=== PATIENT | female | born 1955 | race Caucasian/White ===

== ENCOUNTER → 2022-01-02 | Outpatient (CLI) | payer MEDICARE ==
--- NOTE | 2022-01-03 19:56 | MM ---
Reason for Exam: Screening (asymptomatic). Last mammogram was performed 12 year(s) and 7 month(s) ago. Patient History: Menarche at age 11. Patient has no children. Postmenopausal. Mother had breast cancer. Risk Values: Paty 5 year model risk: 3.6%. NCI Lifetime model risk: 12.6%. Prior Study Comparison: 03/22/2008 Screening Mammogram, [facility]. 06/20/2009 Bilateral Diagnostic Mammogram, [facility]. Tissue Density: The breast tissue is heterogeneously dense. This may lower the sensitivity of mammography. Findings: Analyzed By CAD. Bilateral areas of asymmetric density did not clearly persist on 3-D images. As no priors are available for comparison, progression or a 6 month follow-up recommended. Small intramammary lymph node posterior upper quadrant left breast. A few scattered small benign oil cyst calcifications are noted. Overall Assessment: Probably benign, BI-RAD 3 Management: Diagnostic Mammogram of both breasts in 6 months. 1. Patient should continue monthly self breast exams. 2. A clinical breast exam by your physician is recommended on an annual basis. 3. This exam should not preclude additional follow-up of suspicious palpable abnormalities. Electronically signed and approved by: Norma Thomas M.D. Radiologist
== END | disposition home or self-care (01) ==
LOC: RADMAMWWP 11:02
PROVIDERS: ATTEND Family Medicine
DX: Z12.31 Encounter for screening mammogram for malignant neoplasm of breast (principal); Z78.0 Asymptomatic menopausal state; Z80.3 Family history of malignant neoplasm of breast
CPT/HCPCS: 77063; 77067

== ENCOUNTER 2023-06-29 23:48 | Observation (INO) | payer MEDICARE ==
--- NOTE | 2023-06-30 01:06 | XR ---
EXAMINATION TYPE: XR chest 2V DATE OF EXAM: 06/30/2023 COMPARISON: NONE HISTORY: Dysrhythmia. TECHNIQUE: Frontal and lateral views of the chest are obtained. FINDINGS: There is no focal air space opacity, pleural effusion, or pneumothorax seen. The cardiac silhouette size is within normal limits. Overlying EKG leads are present. The osseous structures are intact. IMPRESSION: No acute cardiopulmonary process.
[2023-06-30 01:42] LABS: Basophils # (A) 0.1 k/uL (0-0.2); Basophils % (A) 1 %; Eosinophils # (A) 0.2 k/uL (0-0.7); Eosinophils % (A) 2 %; HCT 45.3 % (34.0-46.0); HGB 14.4 gm/dL (11.4-16.0); Lymphocytes # (A) 2.9 k/uL (1.0-4.8); Lymphocytes % (A) 27 %; MCH 29.3 pg (25.0-35.0); MCHC 31.8 g/dL (31.0-37.0); MCV 92.3 fL (80.0-100.0); Monocytes # (A) 0.6 k/uL (0-1.0); Monocytes % (A) 5 %; Neutrophils # (A) 6.5 k/uL (1.3-7.7); Neutrophils % (A) 62 %; Platelet Count 297 k/uL (150-450); RDW 13.1 % (11.5-15.5); WBC 10.4 k/uL (3.8-10.6)
[2023-06-30 01:56] LABS: INR 0.8 (<1.2); Partial Thromboplastin Time 25.1 sec (22.0-30.0); Prothrombin Time 9.6 sec (10.0-12.5)
[2023-06-30 02:36] LABS: NT-Pro-B-Type Natriuretic Pept 61 pg/mL
[2023-06-30 03:13] LABS: ALT 34 U/L (4-34); African American GFR (CKD) >90 (>60 ml/min/1.73 sqM); Anion Gap 13 mmol/L; Blood Urea Nitrogen 32 mg/dL (7-17); Calcium 9.6 mg/dL (8.4-10.2); Carbon Dioxide 16 mmol/L (22-30); Chloride 111 mmol/L (98-107); Glucose 106 mg/dL (74-99); Non-African American GFR(CKD) 90 (>60 ml/min/1.73 sqM); Sodium 140 mmol/L (137-145)
[2023-06-30 03:42] LABS: Magnesium 2.3 mg/dL (1.6-2.3)
[2023-06-30 03:43] LABS: AST 42 U/L (14-36); Albumin 4.6 g/dL (3.5-5.0); Alkaline Phosphatase 88 U/L (38-126); Total Bilirubin 0.7 mg/dL (0.2-1.3); Total Protein 8.4 g/dL (6.3-8.2)
[2023-06-30] MEDS ORDERED: NALOXONE 0.4 MG/ML 1 ML VIAL IV PRN ×2 (04:10→09:02)
--- NOTE | 2023-06-30 04:10 | ED ---
General Adult HPI - General Chief complaint: Arrhythmia/Palpitations Stated complaint: Afib Time Seen by Provider: 06/30/23 00:06 Source: patient Mode of arrival: wheelchair Limitations: no limitations - History of Present Illness Initial comments: 68-year-old female presenting with chief complaint of irregular heartbeat. She states that this evening she was checking her pulse when it felt off beat. She has no history of A-fib. She denies any chest pain or difficulty breathing. She recently started taking lisinopril and meloxicam. No lower extremity swelling. No fever, chills, cough, congestion, sore throat. No nausea, vomiting, abdominal pain. She takes no blood thinners. - Related Data Home Medications Medication Instructions Recorded Confirmed Atorvastatin [Lipitor] 20 mg PO HS 06/30/23 06/30/23 Levothyroxine Sodium [Synthroid] 125 mcg PO HS 06/30/23 06/30/23 Meloxicam [Mobic] 15 mg PO DAILY 06/30/23 06/30/23 Naproxen Sodium [Aleve] 220 mg PO BID PRN 06/30/23 06/30/23 lisinopriL [Zestril] 10 mg PO DAILY@1600 06/30/23 06/30/23 Allergies Allergy/AdvReac Type Severity Reaction Status Date / Time bee venom protein (honey bee) Allergy Swelling Verified 06/30/23 09:02 of the entire leg after being stung on foot wool Allergy Rash/Hives Verified 06/30/23 09:02 Review of Systems ROS Statement: Those systems with pertinent positive or pertinent negative responses have been documented in the HPI. ROS Other: All systems not noted in ROS Statement are negative. Past Medical History Past Medical History: Cancer, Thyroid Disorder History of Any Multi-Drug Resistant Organisms: None Reported Additional Past Surgical History / Comment(s): Thyroidectomy Past Psychological History: No Psychological Hx Reported Smoking Status: Never smoker Past Alcohol Use History: None Reported Past Drug Use History: None Reported General Exam Limitations: no limitations General appearance: alert, in no apparent distress Head exam: Present: atraumatic, normocephalic Eye exam: Present: normal appearance, EOMI Neck exam: Present: normal inspection Respiratory exam: Present: normal lung sounds bilaterally. Absent: respiratory distress, wheezes, rales, rhonchi, stridor Cardiovascular Exam: Present: tachycardia, irregular rhythm, normal heart sounds. Absent: systolic murmur, diastolic murmur, rubs, gallop, clicks Extremities exam: Absent: pedal edema Neurological exam: Present: alert, oriented X3 Psychiatric exam: Present: normal affect, normal mood Skin exam: Present: warm, dry Course Vital Signs 06/29/23 06/30/23 06/30/23 23:53 01:30 02:00 Temperature 97.6 F Pulse Rate 74 112 H 138 H Respiratory 16 16 18 Rate Blood Pressure 129/87 150/108 147/84 O2 Sat by Pulse 99 95 96 Oximetry 06/30/23 06/30/23 06/30/23 03:30 04:30 07:00 Temperature 98.4 F Pulse Rate 84 78 71 Respiratory 16 16 16 Rate Blood Pressure 117/75 116/67 128/78 O2 Sat by Pulse 95 95 98 Oximetry 06/30/23 06/30/23 06/30/23 08:35 12:13 14:51 Temperature Pulse Rate 82 75 74 Respiratory 18 18 18 Rate Blood Pressure 128/85 113/73 122/71 O2 Sat by Pulse 98 100 99 Oximetry Medical Decision Making - Medical Decision Making Was pt. sent in by a medical professional or institution (, PA, [employer], urgent care, hospital, or custodial...) When possible be specific @ -No Did you speak to anyone other than the patient for history (EMS, parent, family, police, friend...)? What history was obtained from this source @ -No Did you review nursing and triage notes (agree or disagree)? Why? @ -I reviewed and agree with nursing and triage notes Were old charts reviewed (outside hosp., previous admission, EMS record, old EKG, old radiological studies, urgent care reports/EKG's, custodial records)? Report findings @ -No old charts were reviewed Differential Diagnosis (chest pain, altered mental status, abdominal pain women, abdominal pain men, vaginal bleeding, weakness, fever, dyspnea, syncope, headache, dizziness, GI bleed, back pain, seizure, CVA, palpatations, mental health, musculoskeletal)? @ -Differential Palpitations Ventricular arrhythmias, atrial arrhythmias, myocardial infarction, anemia, thyrotoxicosis, electrolyte imbalance, hypokalemia, pulmonary embolism, pulmonary disease, drugs, alcohol, anxiety, stress.... This is not meant to be an all-inclusive list. EKG interpreted by me (3pts min.). @ -Initial EKG shows atrial fibrillation with rapid ventricular response. Ventricular rate 136. MN interval indeterminable. QRS 91. QT 309. QTc 388. X-rays interpreted by me (1pt min.). @ -Chest x-ray shows no acute cardiopulmonary process CT interpreted by me (1pt min.). @ -None done U/S interpreted by me (1pt. min.). @ -None done What testing was considered but not performed or refused? (CT, X-rays, U/S, labs)? Why? @ -None What meds were considered but not given or refused? Why? @ -None Did you discuss the management of the patient with other professionals (professionals i.e. , PA, [employer], lab, RT, psych nurse, social work specialist, washhouse hand, teacher, deck officer, corrections caseworker)? Give summary @ -My attending spoke with the [facility] provider on-call who accepted admission Was smoking cessation discussed for >3mins.? @ -No Was critical care preformed (if so, how long)? @ -No Were there social determinants of health that impacted care today? How? (Homelessness, low income, unemployed, alcoholism, drug addiction, transportation, low edu. Level, literacy, decrease access to med. care, intermediate, rehab)? @ -No Was there de-escalation of care discussed even if they declined (Discuss DNR or withdrawal of care, Hospice)? DNR status @ -No What co-morbidities impacted this encounter? (DM, HTN, Smoking, COPD, CAD, Cancer, CVA, ARF, Chemo, Hep., AIDS, mental health diagnosis, sleep apnea, morbid obesity)? @ -None Was patient admitted / discharged? Hospital course, mention meds given and route, prescriptions, significant lab abnormalities, going to OR and other pertinent info. @ -68-year-old female presenting with chief complaint of palpitations. EKG shows atrial fibrillation with rapid ventricular response. Patient has no history of A-fib. She takes no blood thinners. Lab work shows no leukocytosis or anemia. Troponin is negative. BNP 61. TSH within normal limits. Chest x- ray shows no acute process. On reassessment patient's heart rate on the monitor appears regular, repeat EKG shows sinus rhythm. Patient converted with no intervention. She is given Lovenox IM and will be admitted for new onset atrial fibrillation with consult for cardiology evaluation. She is agreeable with this plan. I discussed this case with my attending Dr. Guido Undiagnosed new problem with uncertain prognosis? @ -No Drug Therapy requiring intensive monitoring for toxicity (Heparin, Nitro, Insulin, Cardizem)? @ -No Were any procedures done? @ -No Diagnosis/symptom? @ -New onset atrial fibrillation Acute, or Chronic, or Acute on Chronic? @ -Acute Uncomplicated (without systemic symptoms) or Complicated (systemic symptoms)? @ -Complicated Side effects of treatment? @ -No Exacerbation, Progression, or Severe Exacerbation? @ -No Poses a threat to life or bodily function? How? (Chest pain, USA, CA, pneumonia, PE, COPD, DKA, ARF, appy, cholecystitis, CVA, Diverticulitis, Homicidal, Suicidal, threat to staff... and all critical care pts) @ -Yes - Lab Data Result diagrams: 06/30/23 01:20 06/30/23 01:20 Lab Results 06/30/23 06/30/23 06/30/23 Range/Units 01:20 01:20 01:20 WBC 10.4 (3.8-10.6) k/uL RBC 4.90 (3.80-5.40) m/uL Hgb 14.4 (11.4-16.0) gm/dL Hct 45.3 (34.0-46.0) % MCV 92.3 (80.0-100.0) fL MCH 29.3 (25.0-35.0) pg MCHC 31.8 (31.0-37.0) g/dL RDW 13.1 (11.5-15.5) % Plt Count 297 (150-450) k/uL MPV 7.0 Neutrophils % 62 % Lymphocytes % 27 % Monocytes % 5 % Eosinophils % 2 % Basophils % 1 % Neutrophils # 6.5 (1.3-7.7) k/uL Lymphocytes # 2.9 (1.0-4.8) k/uL Monocytes # 0.6 (0-1.0) k/uL Eosinophils # 0.2 (0-0.7) k/uL Basophils # 0.1 (0-0.2) k/uL PT 9.6 L (10.0-12.5) sec INR 0.8 (<1.2) APTT 25.1 (22.0-30.0) sec Sodium 140 (137-145) mmol/L Potassium (3.5-5.1) mmol/L Chloride 111 H (98-107) mmol/L Carbon Dioxide 16 L (22-30) mmol/L Anion Gap 13 mmol/L BUN 32 H (7-17) mg/dL Creatinine 0.69 (0.52-1.04) mg/dL Est GFR (CKD-EPI)AfAm >90 (>60 ml/min/1.73 sqM) Est GFR (CKD-EPI)NonAf 90 (>60 ml/min/1.73 sqM) Glucose 106 H (74-99) mg/dL Calcium 9.6 (8.4-10.2) mg/dL Magnesium 2.3 (1.6-2.3) mg/dL Total Bilirubin 0.7 (0.2-1.3) mg/dL AST 42 H (14-36) U/L ALT 34 (4-34) U/L Alkaline Phosphatase 88 (38-126) U/L Troponin I (0.000-0.034) ng/mL NT-Pro-B Natriuret Pep 61 pg/mL Total Protein 8.4 H (6.3-8.2) g/dL Albumin 4.6 (3.5-5.0) g/dL TSH 2.510 (0.465-4.680) mIU/L 06/30/23 Range/Units 01:20 WBC (3.8-10.6) k/uL RBC (3.80-5.40) m/uL Hgb (11.4-16.0) gm/dL Hct (34.0-46.0) % MCV (80.0-100.0) fL MCH (25.0-35.0) pg MCHC (31.0-37.0) g/dL RDW (11.5-15.5) % Plt Count (150-450) k/uL MPV Neutrophils % % Lymphocytes % % Monocytes % % Eosinophils % % Basophils % % Neutrophils # (1.3-7.7) k/uL Lymphocytes # (1.0-4.8) k/uL Monocytes # (0-1.0) k/uL Eosinophils # (0-0.7) k/uL Basophils # (0-0.2) k/uL PT (10.0-12.5) sec INR (<1.2) APTT (22.0-30.0) sec Sodium (137-145) mmol/L Potassium (3.5-5.1) mmol/L Chloride (98-107) mmol/L Carbon Dioxide (22-30) mmol/L Anion Gap mmol/L BUN (7-17) mg/dL Creatinine (0.52-1.04) mg/dL Est GFR (CKD-EPI)AfAm (>60 ml/min/1.73 sqM) Est GFR (CKD-EPI)NonAf (>60 ml/min/1.73 sqM) Glucose (74-99) mg/dL Calcium (8.4-10.2) mg/dL Magnesium (1.6-2.3) mg/dL Total Bilirubin (0.2-1.3) mg/dL AST (14-36) U/L ALT (4-34) U/L Alkaline Phosphatase (38-126) U/L Troponin I <0.012 (0.000-0.034) ng/mL NT-Pro-B Natriuret Pep pg/mL Total Protein (6.3-8.2) g/dL Albumin (3.5-5.0) g/dL TSH (0.465-4.680) mIU/L Disposition Clinical Impression: New onset a-fib Disposition: ADMITTED IP TO THIS HOSP Condition: Fair Time of Disposition: 04:10
[2023-06-30] MEDS ORDERED: ONDANSETRON 4 MG/2 ML VIAL IVP PRN (04:56)
[2023-06-30] MEDS ORDERED: ACETAMINOPHEN TAB 325 MG TAB PO PRN (04:56)
[2023-06-30] MEDS: ENOXAPARIN 80 MG/0.8 ML SYRINGE SQ STA (05:05)
[2023-06-30] MEDS: PANTOPRAZOLE 40 MG TABLET PO SCH (08:34)
[2023-06-30] MEDS ORDERED: MAG HYDROX/AL HYDROX/SIMETH 30 ML CUP PO PRN (09:07)
--- NOTE | 2023-06-30 12:26 | P.HPIM ---
History of Present Illness H&P Date: 06/30/23 History of present illness; patient is a 68-year-old lady with past medical history significant for hypertension was brought to the ER for concerns of irregular heartbeat. Patient stated that she was all right last evening when started noticing that on checking her pulse it felt to be irregular. Patient also was complaining of palpitations. There was no complaint of chest pain. Denies any shortness of breath. There was no complaint of orthopnea or PND. No complaint of dizziness. Patient has no prior history of irregular heartbeat. Because of the symptoms, patient presented to the ER Initial lab work done in the ER showed WBC 10.4, hemoglobin 14.4, platelet count 297, INR 0.8, sodium 140, chloride 111, carbon oxide 16, BUN 32, creatinine 0.69, glucose 106, AST 42, ALT 34, troponin 0.012, total protein 8.4 EKG done in the ER showed heart rate of 136, irregular in rate and rhythm, no P waves no ST segment elevation or depression seen, no T-wave inversions seen. Chest x-ray done in the ER no acute cardiopulmonary process Patient admitted to internal medicine service REVIEW OF SYSTEMS: CONSTITUTIONAL: No fever, no malaise, no fatigue. HEENT: No recent visual problems or hearing problems. Denied any sore throat. CARDIOVASCULAR: As mentioned above PULMONARY: As mentioned above GASTROINTESTINAL: No diarrhea, no nausea, no vomiting, no abdominal pain. NEUROLOGICAL: No headaches, no weakness, no numbness. HEMATOLOGICAL: Denies any bleeding or petechiae. GENITOURINARY: Denies any burning micturition, frequency, or urgency. MUSCULOSKELETAL/RHEUMATOLOGICAL: Denies any joint pain, swelling, or any muscle pain. ENDOCRINE: Denies any polyuria or polydipsia. The rest of the 14-point review of systems is negative. PHYSICAL EXAMINATION: GENERAL: The patient is alert and oriented x3, not in any acute distress. Well developed, well nourished. HEENT: Pupils are round and equally reacting to light. EOMI. No scleral icterus. No conjunctival pallor. Normocephalic, atraumatic. No pharyngeal erythema. No thyromegaly. CARDIOVASCULAR: S1 and S2 present. No murmurs, rubs, or gallops. PULMONARY: Chest is clear to auscultation, no wheezing or crackles. ABDOMEN: Soft, nontender, nondistended, normoactive bowel sounds. No palpable organomegaly. MUSCULOSKELETAL: No joint swelling or deformity. EXTREMITIES: No cyanosis, clubbing, or pedal edema. NEUROLOGICAL: Gross neurological examination did not reveal any focal deficits. SKIN: No rashes. Assessment and plan Paroxysmal A-fib with RVR Hypertension Monitor vital signs Monitor CBC Monitor CMP Continue telemetry monitoring Troponin. Ordered 2D echo Patient's [id number] score is 2 (1 for age and 1 for hypertension), will consider oral anticoagulation stroke risk of 2.2% being per year Cardiology consulted Labs and medication were reviewed.. Continue same treatment. Continue with symptomatic treatment. Resume home medication. Monitor labs and vitals. DVT and GI prophylaxis. Further recommendations as per clinical course of the patient Dictation was produced using [employer] dictation software. please excuse any grammatical, word or spelling errors. Past Medical History Past Medical History: Cancer, Thyroid Disorder History of Any Multi-Drug Resistant Organisms: None Reported Additional Past Surgical History / Comment(s): Thyroidectomy Past Psychological History: No Psychological Hx Reported Smoking Status: Never smoker Past Alcohol Use History: None Reported Past Drug Use History: None Reported Medications and Allergies Allergies Allergy/AdvReac Type Severity Reaction Status Date / Time bee venom protein (honey bee) Allergy Swelling Verified 06/29/23 23:58 wool Allergy Rash/Hives Verified 06/29/23 23:58 Physical Exam Vitals: Vital Signs Temp Pulse Resp BP Pulse Ox 06/30/23 08:35 82 18 128/85 98 06/30/23 07:00 98.4 F 71 16 128/78 98 06/30/23 04:30 78 16 116/67 95 06/30/23 03:30 84 16 117/75 95 06/30/23 02:00 138 H 18 147/84 96 06/30/23 01:30 112 H 16 150/108 95 06/29/23 23:53 97.6 F 74 16 129/87 99 Intake and Output 06/29/23 06/30/23 06/30/23 22:59 06:59 14:59 Other: Weight 80.286 kg Results CBC & Chem 7: 06/30/23 01:20 06/30/23 01:20 Labs: Abnormal Lab Results - Last 24 Hours (Table) 06/30/23 06/30/23 Range/Units 01:20 01:20 PT 9.6 L (10.0-12.5) sec Chloride 111 H (98-107) mmol/L Carbon Dioxide 16 L (22-30) mmol/L BUN 32 H (7-17) mg/dL Glucose 106 H (74-99) mg/dL AST 42 H (14-36) U/L Total Protein 8.4 H (6.3-8.2) g/dL
[2023-06-30] MEDS: RIVAROXABAN 20 MG TAB PO SCH (18:08)
[2023-06-30] MEDS ORDERED: NAPROXEN 250 MG TAB PO PRN (18:16)
[2023-06-30] MEDS: LEVOTHYROXINE 125 MCG TAB PO SCH (20:05)
[2023-06-30] MEDS: ATORVASTATIN 20 MG TAB PO SCH (20:05)
[2023-06-30] MEDS ORDERED: MELATONIN 3 MG TABLET PO PRN (21:00)
[2023-06-30] MEDS ORDERED: TEMAZEPAM 15 MG CAP PO PRN (21:00)
--- NOTE | 2023-06-30 22:24 | CONS ---
CONSULTATION CHIEF COMPLAINT: New onset atrial fibrillation. HISTORY OF PRESENT ILLNESS: Elizabeth is a 68-year-old lady with history of hypertension, dyslipidemia, and hypothyroidism, who is admitted to hospital with sustained palpitations and vague chest discomfort associated with it. She had recently been evaluated by her primary care physician with symptoms of palpitations, was supposed to have an echo and stress test, which she has not scheduled yet. When she presented to the emergency room this time with the symptoms, she was in atrial fibrillation with rapid ventricular rate and subsequently converted to sinus rhythm on her own. Her TSH is normal at 2.5, hemoglobin is 14.4, platelet count is 0.69. PAST MEDICAL HISTORY: Significant for, 1. Hypertension. 2. Hypothyroidism. 3. Dyslipidemia. MEDICATIONS: Medications at home include, 1. Zestril 10 mg daily. 2. Lipitor 20 daily. 3. Mobic 15 mg daily. 4. Synthroid. ALLERGIES: There are no known drug allergies. FAMILY HISTORY: Negative for premature coronary artery disease. SOCIAL HISTORY: Negative for current smoking issues or drug abuse. REVIEW OF SYSTEMS: A review of systems has been performed, pertinents are as documented. ASSESSMENT: 1. Paroxysmal atrial fibrillation. 2. Hypertension. PLAN: 1. The patient needs to be anticoagulated. 2. Obtain a 2D echo and if the LV function is normal, consider starting flecainide 50 mg b.i.d. and increase the dose as tolerated. 3. I will obtain a stress test on her as outpatient. 4. I will start the patient on Eliquis 5 mg b.i.d. and check an echo in the morning. MMODL / IJN: [id number] /
[2023-07-01] MEDS: MELOXICAM 7.5 MG TAB PO SCH (08:22)
[2023-07-01 08:43] VITALS: BP 107/66; PULSE 62; RESP 16; TEMP 98.1
[2023-07-01] MEDS: METOPROLOL SUCCINATE (ER) 25 MG TAB.ER.24H PO SCH (09:08)
--- NOTE | 2023-07-01 12:42 | CA ---
Transthoracic Echo Report Name: Elizabeth Millan Age: 68 Gender: F : 1955 Exam Date: 07/01/2023 11:32 Exam Location: [facility] Ht (in): 64 Wt (lb): 177 Ordering Physician: Rachel Og Attending/Referring Phys: Wireless Sales Expert Sarah Bowen RDCS Procedure CPT: Indications: New onset afib Cardiac Hx: Technical Quality: Good Contrast 1: Total Dose (mL): Contrast 2: Total Dose (mL): MEASUREMENTS (Male / Female) Normal Values 2D ECHO LV Diastolic Diameter PLAX 4.7 cm 4.2 - 5.9 / 3.9 - 5.3 cm LV Systolic Diameter PLAX 3.2 cm IVS Diastolic Thickness 1.0 cm 0.6 - 1.0 / 0.6 - 0.9 cm LVPW Diastolic Thickness 1.0 cm 0.6 - 1.0 / 0.6 - 0.9 cm LV Relative Wall Thickness 0.4 RV Internal Dim ED PLAX 2.9 cm LA Systolic Diameter LX 3.7 cm 3.0 - 4.0 / 2.7 - 3.8 cm LV Diastolic Volume MOD 4C 84.5 cm??? LV Systolic Volume MOD 4C 43.7 cm??? LV Ejection Fraction MOD 4C 48.3 % LV Cardiac Index MOD 4C 1332.7 cm???/min???m??? LV Diastolic Length 4C 8.0 cm LV Systolic Length 4C 6.4 cm LV Diastolic Volume MOD 2C 64.5 cm??? LV Systolic Volume MOD 2C 29.5 cm??? LV Ejection Fraction MOD 2C 54.3 % LV Cardiac Index MOD 2C 1142.1 cm???/min???m??? LV Diastolic Length 2C 8.0 cm LV Systolic Length 2C 6.7 cm LA Volume 36.6 cm??? 18 - 58 / 22 - 52 cm??? LA Volume Index 19.0 cm???/m??? 16 - 28 cm???/m??? M-MODE Aortic Root Diameter MM 2.9 cm MV E Point Septal Separation 0.4 cm AV Cusp Separation MM 2.2 cm DOPPLER AV Peak Velocity 136.2 cm/s AV Peak Gradient 7.4 mmHg MV Area PHT 3.2 cm??? Mitral E Point Velocity 62.6 cm/s Mitral A Point Velocity 63.2 cm/s Mitral E to A Ratio 1.0 MV Deceleration Time 235.7 ms FINDINGS Left Ventricle Left ventricular ejection fraction is estimated at 60-65 %. Left ventricular cavity size normal. Left ventricular wall thickness normal. Normal left ventricular wall motion. Right Ventricle Normal right ventricular size. Unable to estimate the right ventricular systolic pressure. Right Atrium Normal right atrial size. Left Atrium Normal left atrial size. Mitral Valve Structurally normal mitral valve. No mitral stenosis, regurgitation or prolapse. Aortic Valve Trileaflet aortic valve. No aortic valve stenosis or regurgitation. Tricuspid Valve Structurally normal tricuspid valve. No tricuspid stenosis, regurgitation or prolapse. Pulmonic Valve Structurally normal pulmonic valve. No pulmonic regurgitation. Pericardium No pericardial effusion. Aorta Normal size aortic root and proximal ascending aorta. CONCLUSIONS Normal LV size and systolic function. No significant abnormality on the Doppler exam. No pericardial effusion Previewed by: Dr. Irina Bryant MD (Electronically Signed) Final Date: 01 July 2023 12:42
--- NOTE | 2023-07-01 15:21 | PN ---
PROGRESS NOTE SUBJECTIVE: This lady was seen by Dr. Pollock with a new onset atrial fibrillation, started on Xarelto yesterday. I am recommending that we add metoprolol succinate 25 mg daily and decrease the lisinopril to 5 mg daily. She is maintaining sinus rhythm, doing well. Echo revealed good systolic function. She can be discharged and see Dr. Pollock in the office in 1 week. OBJECTIVE: VITAL SIGNS: Stable. NECK: No JVD. HEART: S1, S2 heard normally. LUNGS: Clear. ABDOMEN: Unchanged. EXTREMITIES: Lower extremities unchanged. MMODL / IJN: [id number] /
[2023-07-01] MEDS ORDERED: lisinopriL 5 MG TAB PO SCH (21:00)
--- NOTE | 2023-07-03 08:13 | P.DS ---
Providers Date of admission: 06/30/23 04:11 Expected date of discharge: 07/01/23 Attending physician: Angel Cortez MD Consults: 06/30/23 04:10 Consult Physician Urgent Consulting Provider: [facility] Consult Reason/Comments: New onset atrial fibrillation Do you want consulting provider notified?: Yes, Notify in am Primary care physician: Angel Cortez MD Hospital Course: Final Diagnoses: Paroxysmal atrial fibrillation, new onset Hypertension Obesity, BMI 30 Hypothyroidism Hospital course: This is a 68-year-old female admitted with new onset atrial fib rillation and multiple other medical issues. Evaluated by cardiology. Anticoagulation with Xarelto initiated in addition to metoprolol. ALFONSO inhibitor decreased. Spontaneously converted to sinus rhythm. Echo reported normal LV function with EF of 60 to 65%. Denies chest pain, palpitations or shortness of breath. Denies lightheadedness, dizziness or focal deficits. Cleared by cardiology for discharge. Patient will be discharged home today in a stable condition with guarded prognosis. The impression and plan of care has been dictated as directed. : I performed a history and examination of this patient, discussed the same with the dictator. I agree with the dictator's note ,documented as a scribe. Any additional findings or plans will be noted. Patient Condition at Discharge: Stable Plan - Discharge Summary Discharge Rx Participant: No New Discharge Prescriptions: New Metoprolol Succinate (ER) [Toprol XL] 25 mg PO DAILY #30 tab Rivaroxaban [Xarelto] 20 mg PO W/SUPPER #30 tab Pantoprazole [Protonix] 40 mg PO AC-BRKFST #30 tab lisinopriL [Zestril] 5 mg PO HS #30 tab Continue Atorvastatin [Lipitor] 20 mg PO HS Levothyroxine Sodium [Synthroid] 125 mcg PO HS Naproxen Sodium [Aleve] 220 mg PO BID PRN PRN Reason: Pain Meloxicam [Mobic] 15 mg PO DAILY Discontinued lisinopriL [Zestril] 10 mg PO DAILY@1600 Discharge Medication List Atorvastatin [Lipitor] 20 mg PO HS 06/30/23 [History] Levothyroxine Sodium [Synthroid] 125 mcg PO HS 06/30/23 [History] Meloxicam [Mobic] 15 mg PO DAILY 06/30/23 [History] Naproxen Sodium [Aleve] 220 mg PO BID PRN 06/30/23 [History] Metoprolol Succinate (ER) [Toprol XL] 25 mg PO DAILY #30 tab 07/01/23 [Rx] Pantoprazole [Protonix] 40 mg PO AC-BRKFST #30 tab 07/01/23 [Rx] Rivaroxaban [Xarelto] 20 mg PO W/SUPPER #30 tab 07/01/23 [Rx] lisinopriL [Zestril] 5 mg PO HS #30 tab 07/01/23 [Rx] Follow up Appointment(s)/Referral(s): Angel Cortez MD [Primary Care Provider] - 3 Days Ousmane Pollock MD [STAFF PHYSICIAN] - 07/09/23 9:00 am Patient Instructions/Handouts: A-fib (Atrial Fibrillation) (DC), Safe Use of Anticoagulants (DC) Discharge Disposition: HOME SELF-CARE
== END 2023-07-01 13:54 | disposition home or self-care (01) ==
LOC: EC 23:48 → 3SCARD 06-30 04:11 → 6NMEDSUR 06-30 13:07
PROVIDERS: ADMIT Family Medicine; ATTEND Family Medicine
DX: I48.0 Paroxysmal atrial fibrillation (principal); E89.0 Postprocedural hypothyroidism; I10 Essential (primary) hypertension; E78.5 Hyperlipidemia, unspecified; E66.9 Obesity, unspecified; Z68.30 Body mass index [BMI] 30.0-30.9, adult; Z79.899 Other long term (current) drug therapy; Z79.890 Hormone replacement therapy; Z79.1 Long term (current) use of non-steroidal anti-inflammatories (NSAID)
CPT/HCPCS: 96372; 99284; 36415; 93005; 93306; 83880; 80053; 83735; 84443; 84484; 85025; 85610; 85730; 71046; G0378 ×3; J1650

== ENCOUNTER 2024-03-22 15:01 | Inpatient (IN) | payer MEDICARE ==
--- NOTE | 2024-03-22 16:11 | ED ---
Animal Bite HPI - General Source: patient, RN notes reviewed Mode of arrival: ambulatory Limitations: no limitations - History of Present Illness MD Complaint: animal bite Onset/Timin -: days(s) <Carlos Simmons - Last Filed: 03/22/24 16:09> - General Source: patient, RN notes reviewed, old records reviewed Mode of arrival: ambulatory Limitations: no limitations - History of Present Illness MD Complaint: animal bite -: days(s) Right: Hand Animal: cat Mechanism: bite Pain Description: sharp Severity scale (1-10): 4 Context: unprovoked, playing with animal Associated Symptoms: erythema, fever, chills Treatments Prior to Arrival: other (Oral antibiotics) <Luis Waters - Last Filed: 03/22/24 18:10> - General Stated Complaint: Animal bite-R hand Time Seen by Provider: 03/22/24 15:16 - History of Present Illness Initial Comments: Quick note: This is a 69-year-old female presenting with cat bite to right hand/wrist x 5 days ago. Patient endorses receiving Augmentin from her primary care 2 days ago with worsening swelling and pain despite antibiotic use. Endorses use of Tylenol with some pain relief. Endorses last tetanus vaccination about 10 years ago. Denies fever, chills, body aches, chest pain, dyspnea, abdominal pain, N/V/D. (Carlos Simmons) This is a 69 female with cat bite to the right hand, patient is day 2 of antibiotics which she has been taking as directed twice a day, patient has increasing swelling redness of the right hand. Patient has felt feverish today (Luis Waters) - Related Data Home Medications Medication Instructions Recorded Confirmed Atorvastatin [Lipitor] 20 mg PO HS 06/30/23 06/30/23 Levothyroxine Sodium [Synthroid] 125 mcg PO HS 06/30/23 06/30/23 Meloxicam [Mobic] 15 mg PO DAILY 06/30/23 06/30/23 Naproxen Sodium [Aleve] 220 mg PO BID PRN 06/30/23 06/30/23 Previous Rx's Medication Instructions Recorded Metoprolol Succinate (ER) [Toprol 25 mg PO DAILY #30 tab 07/01/23 XL] Pantoprazole [Protonix] 40 mg PO AC-BRKFST #30 tab 07/01/23 Rivaroxaban [Xarelto] 20 mg PO W/SUPPER #30 tab 07/01/23 lisinopriL [Zestril] 5 mg PO HS #30 tab 07/01/23 Allergies Allergy/AdvReac Type Severity Reaction Status Date / Time bee venom protein (honey bee) Allergy Swelling Verified 03/22/24 16:11 of the entire leg after being stung on foot wool Allergy Rash/Hives Verified 03/22/24 16:11 Review of Systems ROS Other: All systems not noted in ROS Statement are negative. <Carlos Simmons - Last Filed: 03/22/24 16:09> ROS Other: All systems not noted in ROS Statement are negative. <Luis Waters - Last Filed: 03/22/24 18:10> ROS Statement: Those systems with pertinent positive or pertinent negative responses have been documented in the HPI. Past Medical History Past Medical History: Cancer, Thyroid Disorder History of Any Multi-Drug Resistant Organisms: None Reported Additional Past Surgical History / Comment(s): Thyroidectomy Past Anesthesia/Blood Transfusion Reactions: No Reported Reaction Past Psychological History: No Psychological Hx Reported Smoking Status: Never smoker Past Alcohol Use History: None Reported Past Drug Use History: None Reported <Carlos Simmons - Last Filed: 03/22/24 16:09> General Exam <Carlos Simmons - Last Filed: 03/22/24 16:09> General appearance: alert, in no apparent distress Head exam: Present: atraumatic, normocephalic, normal inspection Eye exam: Present: normal appearance, PERRL, EOMI. Absent: scleral icterus, conjunctival injection, periorbital swelling ENT exam: Present: normal exam, mucous membranes moist Neck exam: Present: normal inspection. Absent: tenderness, meningismus, lymphadenopathy Respiratory exam: Present: normal lung sounds bilaterally. Absent: respiratory distress, wheezes, rales, rhonchi, stridor Cardiovascular Exam: Present: regular rate, normal rhythm, normal heart sounds. Absent: systolic murmur, diastolic murmur, rubs, gallop, clicks GI/Abdominal exam: Present: soft, normal bowel sounds. Absent: distended, tenderness, guarding, rebound, rigid Extremities exam: Present: normal inspection, full ROM, normal capillary refill. Absent: tenderness, pedal edema, joint swelling, calf tenderness Back exam: Present: normal inspection Neurological exam: Present: alert, oriented X3, CN II-XII intact Psychiatric exam: Present: normal affect, normal mood Skin exam: Present: warm, dry, intact, normal color, erythema (Redness of the right upper extremity from the hand where the cat bite is palm and volar surface, spreading up to the arm almost elbow with swelling and redness and warmth). Absent: rash <Luis Waters - Last Filed: 03/22/24 18:10> - General Exam Comments Initial Comments: Visual Physical Exam Vital signs reviewed General: Well-appearing, nontoxic, no acute distress. Head: Normocephalic, atraumatic Eyes: PERRLA, EOMI ENT: Airway patent Chest: Nonlabored breathing Skin: No visual rash, normal skin tone. Moderate edema with mild erythema over right hand, wrist, distal forearm Neuro: Alert and oriented 3 Musculoskeletal: No gross abnormalities (Carlos Simmons) Course <Luis Waters - Last Filed: 03/22/24 18:10> Vital Signs 03/22/24 16:09 Temperature 98.5 F Pulse Rate 74 Respiratory 20 Rate Blood Pressure 155/78 O2 Sat by Pulse 99 Oximetry - Reevaluation(s) Reevaluation #1: 03/22/24 18:08 Medical records reviewed (Luis Waters) Reevaluation #2: 03/22/24 18:08 Patient is in no acute distress does feel feverish today (Luis Waters) Reevaluation #3: 03/22/24 18:08 Patient informed of results questions answered (Luis Waters) Reevaluation #4: Was pt. sent in by a medical professional or institution (, PA, [employer], urgent care, hospital, or fdc...) When possible be specific @ -no Did you speak to anyone other than the patient for history (EMS, parent, family, police, friend...)? What history was obtained from this source @ -no Did you review nursing and triage notes (agree or disagree)? Why? @ -agree Are old charts reviewed (outside hosp., previous admission, EMS record, old EKG, old radiological studies, urgent care reports/EKG's, fdc records)? Report findings @ -yes Differential Diagnosis (chest pain, altered mental status, abdominal pain women, abdominal pain men, vaginal bleeding, weakness, fever, dyspnea, syncope, headache, dizziness, GI bleed, back pain, seizure, CVA, palpatations, mental health, musculoskeletal)? @ -prior EKG interpreted by me (3pts min.). @ -yes X-rays interpreted by me (1pt min.). @ -yes negative for acute disease CT interpreted by me (1pt min.). @ -no U/S interpreted by me (1pt. min.). @ -no What testing was considered but not performed or refused? (CT, X-rays, U/S, labs)? Why? @ -none What meds were considered but not given or refused? Why? @ -none Did you discuss the management of the patient with other professionals (professionals i.e. , PA, [employer], lab, RT, psych nurse, geriatric social worker, iron and steel work supervisor, teacher, parcel post officer, caser shoe parts)? Give summary @ -no Was smoking cessation discussed for >3mins.? @ -no Was critical care preformed (if so, how long)? @ -no Were there social determinants of health that impacted care today? How? (Homelessness, low income, unemployed, alcoholism, drug addiction, transportation, low edu. Level, literacy, decrease access to med. care, skilled nursing, rehab)? @ -none Was there de-escalation of care discussed even if they declined (Discuss DNR or withdrawal of care, Hospice)? DNR status @ -no What co-morbidities impacted this encounter? (DM, HTN, Smoking, COPD, CAD, Cancer, CVA, ARF, Chemo, Hep., AIDS, mental health diagnosis, sleep apnea, morbid obesity)? @ -none Was patient admitted / discharged? Hospital course, mention meds given and route, prescriptions, significant lab abnormalities, going to OR and other pertinent info. @ - Undiagnosed new problem with uncertain prognosis? @ -no Drug Therapy requiring intensive monitoring for toxicity (Heparin, Nitro, Insulin, Cardizem)? @ -no Were any procedures done? @ -no Diagnosis/symptom? @ - Acute, or Chronic, or Acute on Chronic? @ -Acute Uncomplicated (without systemic symptoms) or Complicated (systemic symptoms)? @ -Complicated Side effects of treatment? @ -no Exacerbation, Progression, or Severe Exacerbation? @ -exacerbation Poses a threat to life or bodily function? How? (Chest pain, USA, DC, pneumonia, PE, COPD, DKA, ARF, appy, cholecystitis, CVA, Diverticulitis, Homicidal, Suicidal, threat to staff... and all critical care pts) @ -yes (Luis Waters) - Consultations Consultation #1: Spoke with [facility] who agrees to admit this patient (Luis Waters) Medical Decision Making <Carlos Simmons - Last Filed: 03/22/24 16:09> - Radiology Data Radiology results: report reviewed (X-ray hand is positive for swelling and edema), image reviewed <Luis Waters - Last Filed: 03/22/24 18:10> - Medical Decision Making I completed the quick note portion of this chart signed [place] Ron (Carlos Simmons) 69 female to ER with 3 days of outpatient antibiotics for cat bite, day 5 of initial cat bite, patient will admit for increasing swelling cellulitis and redness of the right arm spreading almost to the elbow, patient will admit for IV antibiotics (Luis Waters) Disposition <Carlos Simmons - Last Filed: 03/22/24 16:09> Is patient prescribed a controlled substance at d/c from ED?: No Time of Disposition: 18:00 <Luis Waters - Last Filed: 03/22/24 18:10> Clinical Impression: Cat bite, Right arm cellulitis, Cellulitis of right hand, Cat bite of right hand Disposition: ADMITTED IP TO THIS [facility] Condition: Fair Referrals: Angel Cortez MD [Primary Care Provider] - 1-2 days
--- NOTE | 2024-03-22 16:45 | XR ---
EXAMINATION TYPE: XR wrist complete RT DATE OF EXAM: 03/22/2024 4:39 PM COMPARISON: None CLINICAL INDICATION: Female, 69 years old with history of Swelling following cat bite; PHH, pain TECHNIQUE: XR wrist complete RT; examined in the Frontal, navicular, lateral, and oblique. FINDINGS: Soft tissue swelling around the wrist. Moderate to severe degeneration changes of the first digit carpometacarpal joint. No acute osseous pathology, joint dislocation, or joint effusion. No ra diopaque foreign body. IMPRESSION: 1. No radiopaque foreign body. 2. Soft tissue swelling without acute osseous pathology. 3. Moderate scattered degeneration first digit carpometacarpal joint. [facility], , 03/22/2024 4:42 PM
[2024-03-22] MEDS ORDERED: ONDANSETRON 4 MG/2 ML VIAL IVP PRN (18:05)
[2024-03-22] MEDS ORDERED: NALOXONE 0.4 MG/ML 1 ML VIAL IV PRN (18:05)
[2024-03-22 19:16] LABS: Basophils % (A) 0 %; Eosinophils # (A) 0.4 k/uL (0-0.7); Eosinophils % (A) 3 %; HGB 11.7 gm/dL (11.4-16.0); Lymphocytes # (A) 2.5 k/uL (1.0-4.8); Lymphocytes % (A) 20 %; MCH 28.7 pg (25.0-35.0); MCHC 31.5 g/dL (31.0-37.0); Mean Platelet Volume 6.9; Monocytes # (A) 0.7 k/uL (0-1.0); Monocytes % (A) 5 %; Neutrophils % (A) 70 %; Platelet Count 328 k/uL (150-450); RBC 4.07 m/uL (3.80-5.40); RDW 13.1 % (11.5-15.5); WBC 12.8 k/uL (3.8-10.6)
[2024-03-22 19:18] LABS: ALT 19 U/L (4-34); African American GFR (CKD) 89 (>60 ml/min/1.73 sqM); Albumin 4.5 g/dL (3.5-5.0); Anion Gap 13 mmol/L; Blood Urea Nitrogen 22 mg/dL (7-17); C Reactive Protein 8.9 mg/dL (<1.0); Calcium 9.4 mg/dL (8.4-10.2); Carbon Dioxide 18 mmol/L (22-30); Chloride 107 mmol/L (98-107); Glucose 99 mg/dL (74-99); Non-African American GFR(CKD) 77 (>60 ml/min/1.73 sqM); Sodium 138 mmol/L (137-145); Total Bilirubin 0.8 mg/dL (0.2-1.3); Total Protein 7.7 g/dL (6.3-8.2)
[2024-03-22 19:21] LABS: AST 26 U/L (14-36); Alkaline Phosphatase 109 U/L (38-126)
[2024-03-22] MEDS: SODIUM CHLORIDE 0.9% 1,000 ML IV SCH (21:10)
[2024-03-22] MEDS: AMPICILLIN-SULBACTAM 3 GM in SODIUM CHLORIDE 0.9% 100 ML IVPB STA (21:11)
[2024-03-22] MEDS: DIPH,PERTUS(ACELL)TETVAC-LF 0.5 ML VIAL IM ONE (21:14)
[2024-03-22] MEDS: SODIUM CHLORIDE 0.9% 1,000 ML IV STA (21:15)
[2024-03-23] MEDS: MORPHINE SULFATE 4 MG/ML SYRINGE IV PRN (01:44)
[2024-03-23] MEDS: AMPICILLIN-SULBACTAM 3 GM in SODIUM CHLORIDE 0.9% 100 ML IVPB SCH ×2 (04:24→11:55)
[2024-03-23] MEDS ORDERED: VANCOMYCIN IV PER PHARMACY 1 EACH MISC MISCELLANE PRN (09:23)
--- NOTE | 2024-03-23 09:24 | P.HPIM ---
History of Present Illness H&P Date: 03/23/24 History of present illness: 69-year-old female with past medical history significant for hypothyroidism, hypertension, history of atrial fibrillation on Xarelto who presented to ER with a complaint of right hand/wrist pain and swelling and tenderness after cat bite. Patient reported that she had a car bite about 4 to 5 days ago, noticed redness swelling and pain in the right hand and wrist which continued to get worse, patient went to her primary care on Saturday for worsening symptoms and was pre scribed Augmentin which patient took for 2 days but symptoms continued to get worse so she decided come to the ED for further checkup. Patient reported that her pain redness and warmth was extending upwards up to the forearm, now has been improving since yesterday. Patient denied any fever, reports chills. Patient denied any headache, vision changes, sore throat, shortness of breath, productive cough, chest pain, palpitation, nausea vomiting diarrhea constipation abdominal pain dysuria urgency frequency weakness or numbness of extremities. In the ED patient was afebrile, heart rate, respiratory rate, blood pressure and oxygenation stable. WBCs 12.8, hemoglobin 11.7, platelet 328 on presentation. Absolute neutrophils 9.0. BMP was unremarkable. Lactate was normal. X-ray left hand showed no radiopaque foreign body, soft tissue swelling without acute osseous pathology, moderate scattered degenerative no of first digit carpal metacarpal joint. Assessment and plan: Right hand cellulitis: Cat bite: Presented with right hand swelling, tenderness, erythema for 4 to 5 days after cat bite Took Augmentin as outpatient for 2 days X-ray right hand negative for any acute osseous process, showed soft tissue swelling. Antibiotics: Vancomycin and Unasyn ID consult Orthopedic consult Paroxysmal atrial fibrillation: Continue metoprolol Hold Xarelto in case surgical intervention needed Hypertension: Resume metoprolol, lisinopril Hypothyroidism Synthroid DVT prophylaxis Hold Xarelto. Monitor vital signs and labs Labs and medication were reviewed. Continue same treatment. Further recommendations as per clinical course of the patient REVIEW OF SYSTEMS: CONSTITUTIONAL: No fever, no malaise, no fatigue. HEENT: No recent visual problems or hearing problems. Denied any sore throat. CARDIOVASCULAR: No chest pain, orthopnea, PND, no palpitations, no syncope. PULMONARY: No shortness of breath, no cough, no hemoptysis. GASTROINTESTINAL: No diarrhea, no nausea, no vomiting, no abdominal pain. NEUROLOGICAL: No headaches, no weakness, no numbness. HEMATOLOGICAL: Denies any bleeding or petechiae. GENITOURINARY: Denies any burning micturition, frequency, or urgency. MUSCULOSKELETAL/RHEUMATOLOGICAL: Denies any joint pain, swelling, or any muscle pain. ENDOCRINE: Denies any polyuria or polydipsia. The rest of the 14-point review of systems is negative. PHYSICAL EXAMINATION: GENERAL: The patient is A&O x3, NAD HEENT: EOMI, Sclerae anicteric, Moist Mucous membranes Neck: Supple, Non tender, No JVD PULMONARY: Equal breath souds B/L, No wheezing, No crackles. CARDIOVASCULAR: S1, S2 present. No murmurs, rubs, or gallops. ABDOMEN: Soft, nontender, nondistended, normoactive bowel sounds. No guarding or rebound tenderness. MUSCULOSKELETAL: Dorsum of right hand warm, tender extending up to wrist, painful extension of the wrist. Normal flexion movements. NEUROLOGICAL: CN 2-12 grossly intact. No FND Dictation was produced using [employer] dictation software. please excuse any grammatical, word or spelling errors. Past Medical History Past Medical History: Atrial Fibrillation, Cancer, Thyroid Disorder History of Any Multi-Drug Resistant Organisms: None Reported Additional Past Surgical History / Comment(s): Thyroidectomy Past Anesthesia/Blood Transfusion Reactions: No Reported Reaction Past Psychological History: No Psychological Hx Reported Smoking Status: Never smoker Past Alcohol Use History: None Reported Past Drug Use History: None Reported Medications and Allergies Home Medications Medication Instructions Recorded Confirmed Type Atorvastatin [Lipitor] 20 mg PO HS 06/30/23 03/22/24 History Levothyroxine Sodium [Synthroid] 125 mcg PO HS 06/30/23 03/22/24 History Meloxicam [Mobic] 15 mg PO DAILY 06/30/23 03/22/24 History Metoprolol Succinate (ER) [Toprol 25 mg PO DAILY #30 tab 07/01/23 03/22/24 Rx XL] Rivaroxaban [Xarelto] 20 mg PO W/SUPPER #30 tab 07/01/23 03/22/24 Rx lisinopriL [Zestril] 5 mg PO HS #30 tab 07/01/23 03/22/24 Rx Acetaminophen [Tylenol Extra 1,000 mg PO TID 03/22/24 03/22/24 History Strength] Amoxic-Pot Clav 875-125Mg 1 tab PO BID 03/22/24 03/22/24 History [Augmentin 875-125] Pantoprazole [Protonix] 40 mg PO DAILY 03/22/24 03/22/24 History Allergies Allergy/AdvReac Type Severity Reaction Status Date / Time bee venom protein (honey bee) Allergy Swelling Verified 03/22/24 18:29 of the entire leg after being stung on foot wool Allergy Rash/Hives Verified 03/22/24 18:29 Physical Exam Vitals: Vital Signs Temp Pulse Pulse Resp BP BP Pulse Ox 03/23/24 08:23 97.5 F L 83 18 123/74 96 03/23/24 08:06 98.4 F 72 18 136/78 97 03/23/24 07:34 97.9 F 71 18 138/81 97 03/23/24 01:48 98.2 F 71 18 131/74 96 03/22/24 21:18 98.7 F 83 16 134/85 100 03/22/24 16:09 98.5 F 74 20 155/78 99 Intake and Output 03/22/24 03/23/24 03/23/24 22:59 06:59 14:59 Other: Voiding Method Toilet Weight 79.832 kg 79.832 kg Results CBC & Chem 7: 03/23/24 06:27 03/23/24 06:27 Labs: Abnormal Lab Results - Last 24 Hours (Table) 03/22/24 03/22/24 Range/Units 18:54 18:54 WBC 12.8 H (3.8-10.6) k/uL Neutrophils # 9.0 H (1.3-7.7) k/uL Carbon Dioxide 18 L (22-30) mmol/L BUN 22 H (7-17) mg/dL C-Reactive Protein 8.9 H (<1.0) mg/dL Thrombosis Risk Factor Assmnt - Choose All That Apply Each Factor Represents 1 point: Age 41-60 years Each Risk Factor Represents 2 Points: Age 61-74 years Thrombosis Risk Factor Assessment Total Risk Factor Score: 3 Thrombosis Risk Factor Assessment Level: Moderate Risk
[2024-03-23] MEDS: METOPROLOL SUCCINATE (ER) 25 MG TAB.ER.24H PO SCH (09:44)
[2024-03-23] MEDS: PANTOPRAZOLE 40 MG TABLET PO SCH (09:44)
[2024-03-23] MEDS: HYDROcodone/APAP 5-325MG 1 EACH TAB PO PRN (09:45)
[2024-03-23 10:24] LABS: Basophils # (A) 0.07 X 10*3/uL (0.00-0.10); Basophils % (A) 0.8 %; Eosinophils # (A) 0.29 X 10*3/uL (0.04-0.35); Eosinophils % (A) 3.5 %; HCT 37.6 % (37.2-46.3); HGB 11.7 g/dL (12.0-15.0); Lymphocytes # (A) 2.69 X 10*3/uL (0.90-5.00); Lymphocytes % (A) 32.1 %; MCH 28.4 pg (27.0-32.0); MCHC 31.1 g/dL (32.0-37.0); MCV 91.3 FL (80.0-97.0); Mean Platelet Volume 9.3 FL (9.5-12.2); Monocytes # (A) 0.63 X 10*3/uL (0.20-1.00); Monocytes % (A) 7.5 %; NRBC Per 100 WBC 0 X 10*3/uL (0.00-0.01); Platelet Count 333 X 10*3/uL (140-440); RBC 4.12 X 10*6/uL (4.10-5.20); RDW 13.5 % (11.5-14.5); WBC 8.39 X 10*3/uL (4.50-10.00)
[2024-03-23 10:36] LABS: ALT 14 U/L (8-44); AST 14 U/L (13-35); Albumin/Globulin Ratio 1.38 Ratio (1.60-3.17); Alkaline Phosphatase 112 U/L (41-126); Blood Urea Nitrogen 17.4 mg/dL (9.0-27.0); Carbon Dioxide 20.6 mmol/L (21.6-31.8); Chloride 106 mmol/L (96-109); Globulin 2.9 g/dL (1.6-3.3); Glucose 97 mg/dL (70-110); Magnesium 2.1 mg/dL (1.5-2.4); Phosphorus 3.2 mg/dL (2.4-5.1); Potassium 4.4 mmol/L (3.5-5.5); Sodium 140 mmol/L (135-145); Total Bilirubin 0.5 mg/dL (0.3-1.2); Total Protein 6.9 g/dL (6.2-8.2)
[2024-03-23] MEDS: VANCOMYCIN 1,500 MG in SODIUM CHLORIDE 0.9% 500 ML 500 ML IVPB ONE (10:45)
[2024-03-23] MEDS: lisinopriL 5 MG TAB PO SCH (20:35)
[2024-03-23] MEDS: LEVOTHYROXINE 125 MCG TAB PO SCH (20:35)
[2024-03-23] MEDS: ATORVASTATIN 20 MG TAB PO SCH (20:35)
[2024-03-23] MEDS: ACETAMINOPHEN TAB 500 MG TAB PO PRN (20:36)
--- NOTE | 2024-03-23 21:46 | P.CONS ---
History of Present Illness - Reason for Consult Consult date: 03/23/24 Cat bite cellulitis Requesting physician: Ron Granda - Chief Complaint Right hand pain swelling and redness x few days - History of Present Illness Patient is a 69-year-old female with a past medical history significant for atrial fibrillation hypothyroidism presenting to the hospital for evaluation of right hand pain swelling and redness that apparently has been getting worse for the last 4 to 5 days patient has been bitten by her pet cat on the dorsal aspect of the right hand about 5 days ago 2 days later the patient noted to have increasing swelling and redness for the patient was seen by her primary care physician and the patient was started on oral Augmentin with the patient to for the next 2 days however the day of presenting to the hospital the patient woke up with worsening swelling redness which was spreading up her arm that concerned the patient as she presented to hospital on arrival to the ER the patient was complaining of pain to be throbbing about 8 out of 10 that has down to 6 out of 10 with the pain medication patient did have some stable denies high-grade fever patient denies having any worsening headache URI symptoms no ch est pain shortness with or cough no abdominal pain or diarrhea on presentation the hospital patient was afebrile no fever have been recorded subsequently patient was not tachycardic hypotensive or hypoxic and no need for supplemental oxygen patient did have a white count of 12.8 with a left shift creatinine was 0.7 and electrolyte has been normal liver isms are normal patient did have x-ray of the wrist tissues no foreign body soft tissue swelling without acute bony pathology patient was started on Unasyn 3 g every 8 vancomycin was added this morning infectious disease was consulted for further management of antibiotic therapy Review of Systems Positive point and negatives has been mentioned in the HPI, complete review of systems was performed and all other systems are negative Past Medical History Past Medical History: Atrial Fibrillation, Cancer, Thyroid Disorder History of Any Multi-Drug Resistant Organisms: None Reported Additional Past Surgical History / Comment(s): Thyroidectomy Past Anesthesia/Blood Transfusion Reactions: No Reported Reaction Past Psychological History: No Psychological Hx Reported Smoking Status: Never smoker Past Alcohol Use History: None Reported Past Drug Use History: None Reported Medications and Allergies Home Medications Medication Instructions Recorded Confirmed Type Atorvastatin [Lipitor] 20 mg PO HS 06/30/23 03/22/24 History Levothyroxine Sodium [Synthroid] 125 mcg PO HS 06/30/23 03/22/24 History Meloxicam [Mobic] 15 mg PO DAILY 06/30/23 03/22/24 History Metoprolol Succinate (ER) [Toprol 25 mg PO DAILY #30 tab 07/01/23 03/22/24 Rx XL] Rivaroxaban [Xarelto] 20 mg PO W/SUPPER #30 tab 07/01/23 03/22/24 Rx lisinopriL [Zestril] 5 mg PO HS #30 tab 07/01/23 03/22/24 Rx Acetaminophen [Tylenol Extra 1,000 mg PO TID 03/22/24 03/22/24 History Strength] Amoxic-Pot Clav 875-125Mg 1 tab PO BID 03/22/24 03/22/24 History [Augmentin 875-125] Pantoprazole [Protonix] 40 mg PO DAILY 03/22/24 03/22/24 History Allergies Allergy/AdvReac Type Severity Reaction Status Date / Time bee venom protein (honey bee) Allergy Swelling Verified 03/22/24 18:29 of the entire leg after being stung on foot wool Allergy Rash/Hives Verified 03/22/24 18:29 Physical Exam Vitals: Vital Signs Temp Pulse Pulse Resp BP BP Pulse Ox 03/23/24 08:23 97.5 F L 83 18 123/74 96 03/23/24 08:06 98.4 F 72 18 136/78 97 03/23/24 07:34 97.9 F 71 18 138/81 97 03/23/24 01:48 98.2 F 71 18 131/74 96 03/22/24 21:18 98.7 F 83 16 134/85 100 03/22/24 16:09 98.5 F 74 20 155/78 99 Intake and Output 03/22/24 03/23/24 03/23/24 22:59 06:59 14:59 Other: Voiding Method Toilet Weight 79.832 kg 79.832 kg GENERAL DESCRIPTION: Elderly female up in bed, no distress. No tachypnea or accessory muscle of respiration use. HEENT: Shows Pallor , no scleral icterus. Oral mucous membrane is dry. No pharyngeal erythema or thrush NECK: Trachea central, no thyromegaly. LUNGS: Unlabored breathing. Clear to auscultation anteriorly. No wheeze or crackle. HEART: S1, S2, regular rate and rhythm. No loud murmur ABDOMEN: Soft, no tenderness , guarding or rigidity, no organomegaly EXTREMITIES: Right hand dorsum did have diffuse swelling and redness which is warm and tender to touch no fluctuation or drainage SKIN: No rash, no masses palpable. NEUROLOGICAL: The patient is awake, alert, oriented x3, mood and affect normal. Results CBC & Chem 7: 03/23/24 06:27 03/23/24 06:27 Labs: Abnormal Lab Results - Last 24 Hours (Table) 03/22/24 03/22/24 03/23/24 Range/Units 18:54 18:54 06:27 WBC 12.8 H (3.8-10.6) k/uL Hgb 11.7 L (12.0-15.0) g/dL MCHC 31.1 L (32.0-37.0) g/dL MPV 9.3 L (9.5-12.2) FL Neutrophils # 9.0 H (1.3-7.7) k/uL Carbon Dioxide 18 L (22-30) mmol/L Anion Gap (4.00-12.00) mmol/L BUN 22 H (7-17) mg/dL BUN/Creatinine Ratio (12.00-20.00) Ratio C-Reactive Protein 8.9 H (<1.0) mg/dL Albumin/Globulin Ratio (1.60-3.17) Ratio 03/23/24 Range/Units 06:27 WBC (3.8-10.6) k/uL Hgb (12.0-15.0) g/dL MCHC (32.0-37.0) g/dL MPV (9.5-12.2) FL Neutrophils # (1.3-7.7) k/uL Carbon Dioxide 20.6 L (22-30) mmol/L Anion Gap 13.40 H (4.00-12.00) mmol/L BUN (7-17) mg/dL BUN/Creatinine Ratio 29.00 H (12.00-20.00) Ratio C-Reactive Protein (<1.0) mg/dL Albumin/Globulin Ratio 1.38 L (1.60-3.17) Ratio Assessment and Plan (1) Failure of outpatient treatment Current Visit: Yes Status: Acute Code(s): Z78.9 - OTHER SPECIFIED HEALTH STATUS SNOMED Code(s): 779042348 (2) Leukocytosis Current Visit: Yes Status: Acute Code(s): D72.829 - ELEVATED WHITE BLOOD CELL COUNT, UNSPECIFIED SNOMED Code(s): 536887321 (3) Cat bite Current Visit: Yes Status: Acute Code(s): W55.01XA - BITTEN BY CAT, INITIAL ENCOUNTER SNOMED Code(s): 858987753 (4) Cellulitis of right hand Current Visit: Yes Status: Acute Code(s): L03.113 - CELLULITIS OF RIGHT UPPER LIMB SNOMED Code(s): 46199959581941671 Plan: 1patient presented hospital with right hand swelling redness that was extending to the right forearm likely lymphangitis from a cat bite cellulitis and will likely need to cover for the oral david of the cat mouth clinically doubt MRSA infection failing outpatient oral Augmentin because of the burden of disease 2-leukocytosis likely due to right hand cat bite cellulitis 3-we will increase the dose of Unasyn to 3 g every 6 hours 4-marked area of the redness 5-discontinue vancomycin We will follow on clinical condition and cultures to further adjust medication if needed Thank you for this consultation we will follow the patient along with you Dictation was produced using [email or web address] dictation software. please excuse any grammatical, word or spelling errors. Time with Patient: Greater than 30
[2024-03-23] MEDS ORDERED: VANCOMYCIN 1,500 MG in SODIUM CHLORIDE 0.9% 500 ML 500 ML IVPB SCH (22:00)
[2024-03-24 04:49] LABS: Basophils % (A) 1 %; Eosinophils # (A) 0.3 k/uL (0-0.7); Eosinophils % (A) 4 %; HCT 33.4 % (34.0-46.0); HGB 10.7 gm/dL (11.4-16.0); Lymphocytes # (A) 2.2 k/uL (1.0-4.8); Lymphocytes % (A) 29 %; MCH 29.4 pg (25.0-35.0); MCHC 32.1 g/dL (31.0-37.0); MCV 91.6 fL (80.0-100.0); Mean Platelet Volume 6.8; Monocytes # (A) 0.5 k/uL (0-1.0); Monocytes % (A) 6 %; Neutrophils # (A) 4.3 k/uL (1.3-7.7); Neutrophils % (A) 58 %; Platelet Count 293 k/uL (150-450); RBC 3.65 m/uL (3.80-5.40); RDW 12.9 % (11.5-15.5); WBC 7.5 k/uL (3.8-10.6)
[2024-03-24 05:08] LABS: African American GFR (CKD) >90 (>60 ml/min/1.73 sqM); Anion Gap 8 mmol/L; Blood Urea Nitrogen 13 mg/dL (7-17); Calcium 8.6 mg/dL (8.4-10.2); Carbon Dioxide 20 mmol/L (22-30); Chloride 111 mmol/L (98-107); Glucose 96 mg/dL (74-99); Non-African American GFR(CKD) >90 (>60 ml/min/1.73 sqM); Potassium 4.5 mmol/L (3.5-5.1); Sodium 139 mmol/L (137-145)
--- NOTE | 2024-03-24 08:18 | P.CNOR ---
History of Present Illness - HPI History of present illness: the patient is a very pleasant [id number] 69-year-old female who is admitted to internal medicine with right hand cellulitis. She was bit by her cat several days ago and developed progressively worsening pain on the dorsum of her wrist. She has no other complaints other than wrist pain and pain when she extends her fingers. Past Medical History Past Medical History: Atrial Fibrillation, Cancer, Thyroid Disorder History of Any Multi-Drug Resistant Organisms: None Reported Additional Past Surgical History / Comment(s): Thyroidectomy Past Anesthesia/Blood Transfusion Reactions: No Reported Reaction Past Psychological History: No Psychological Hx Reported Smoking Status: Never smoker Past Alcohol Use History: None Reported Past Drug Use History: None Reported Medications and Allergies Home Medications Medication Instructions Recorded Confirmed Type Atorvastatin [Lipitor] 20 mg PO HS 06/30/23 03/22/24 History Levothyroxine Sodium [Synthroid] 125 mcg PO HS 06/30/23 03/22/24 History Meloxicam [Mobic] 15 mg PO DAILY 06/30/23 03/22/24 History Metoprolol Succinate (ER) [Toprol 25 mg PO DAILY #30 tab 07/01/23 03/22/24 Rx XL] Rivaroxaban [Xarelto] 20 mg PO W/SUPPER #30 tab 07/01/23 03/22/24 Rx lisinopriL [Zestril] 5 mg PO HS #30 tab 07/01/23 03/22/24 Rx Acetaminophen [Tylenol Extra 1,000 mg PO TID 03/22/24 03/22/24 History Strength] Amoxic-Pot Clav 875-125Mg 1 tab PO BID 03/22/24 03/22/24 History [Augmentin 875-125] Pantoprazole [Protonix] 40 mg PO DAILY 03/22/24 03/22/24 History Allergies Allergy/AdvReac Type Severity Reaction Status Date / Time bee venom protein (honey bee) Allergy Swelling Verified 03/22/24 18:29 of the entire leg after being stung on foot wool Allergy Rash/Hives Verified 03/22/24 18:29 Physical Examination the patient is resting comfortably on a hospital gurney. She is alert and able to answer questions. A focused exam of the right hand was conducted. On inspection there is a small puncture site over the dorsum of the hand. There is mild erythema and swelling. There is no hermelinda erythema, fluctuance, or subcutaneous crepitance. She has minimal pain with passive extension of the wrist. She does have some discomfort with passive range of motion of the fingers. Her hand is warm and well-perfused. Results x-rays show no obvious foreign bodies. 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 - Labs Labs: Abnormal Lab Results - Last 24 Hours (Table) 03/23/24 03/23/24 03/24/24 Range/Units 06:27 06:27 04:26 RBC 3.65 L (3.80-5.40) m/uL Hgb 11.7 L 10.7 L (12.0-15.0) g/dL Hct 33.4 L (34.0-46.0) % MCHC 31.1 L (32.0-37.0) g/dL MPV 9.3 L (9.5-12.2) FL Chloride (98-107) mmol/L Carbon Dioxide 20.6 L (21.6-31.8) mmol/L Anion Gap 13.40 H (4.00-12.00) mmol/L BUN/Creatinine Ratio 29.00 H (12.00-20.00) Ratio Albumin/Globulin Ratio 1.38 L (1.60-3.17) Ratio 03/24/24 Range/Units 04:26 RBC (3.80-5.40) m/uL Hgb (12.0-15.0) g/dL Hct (34.0-46.0) % MCHC (32.0-37.0) g/dL MPV (9.5-12.2) FL Chloride 111 H (98-107) mmol/L Carbon Dioxide 20 L (21.6-31.8) mmol/L Anion Gap (4.00-12.00) mmol/L BUN/Creatinine Ratio (12.00-20.00) Ratio Albumin/Globulin Ratio (1.60-3.17) Ratio Microbiology - Last 24 Hours (Table) 03/22/24 19:34 Blood Culture - Preliminary Blood H & H 03/22/24 03/23/24 03/24/24 Range/Units 18:54 06:27 04:26 Hgb 11.7 11.7 L 10.7 L (11.4-16.0) gm/dL Hct 37.0 37.6 33.4 L (34.0-46.0) % Result Diagrams: 03/24/24 04:26 03/24/24 04:26 Assessment and Plan Assessment: right hand cellulitis, no evidence of deep space infection requiring surgical intervention Plan: the patient's clinical presentation is most consistent with cellulitis. She does not appear to have a deep space infection requiring surgery at this time. I would recommend IV antibiotics and local modalities. We will continue to mon itor the patient and if her condition worsens would recommend getting a computed tomography scan to rule out deep space infection. The patient can follow-up on oral antibiotics when cleared by internal medicine and infectious disease to follow up with one of our hand surgeons in the office. Time with Patient: Greater than 30
--- NOTE | 2024-03-24 17:12 | P.PN ---
Subjective Progress Note Date: 03/24/24 Interval History: 69-year-old female with past medical history significant for hypothyroidism, hypertension, history of atrial fibrillation on Xarelto who presented to ER with a complaint of right hand/wrist pain and swelling and tenderness after cat bite. Patient reported that she had a car bite about 4 to 5 days ago, noticed redness swelling and pain in the right hand and wrist which continued to get worse, patient went to her primary care on Saturday for worsening symptoms and was prescribed Augmentin which patient took for 2 days but symptoms continued to get worse so she decided come to the ED for further checkup. Patient reported that her pain redness and warmth was extending upwards up to the forearm, now has been improving since yesterday. Patient denied any fever, reports chills. Patient denied any headache, vision changes, sore throat, shortness of breath, productive cough, chest pain, palpitation, nausea vomiting diarrhea constipation abdominal pain dysuria urgency frequency weakness or numbness of extremities. In the ED patient was afebrile, heart rate, respiratory rate, blood pressure and oxygenation stable. WBCs 12.8, hemoglobin 11.7, platelet 328 on presentation. Absolute neutrophils 9.0. BMP was unremarkable. Lactate was normal. X-ray left hand showed no radiopaque foreign body, soft tissue swelling without acute osseous pathology, moderate scattered degenerative no of first digit carpal metacarpal joint. 12/31patient was seen and examined today. Vital stable. Lab work stable. Orthopedic consulted and evaluated patient, no surgical intervention indicated. ID consulted and following, currently vancomycin and Unasyn. Patient reported mild improvement in right hand swelling and pain. Assessment and plan: Right hand cellulitis: Cat bite: Presented with right hand swelling, tenderness, erythema for 4 to 5 days after cat bite Took Augmentin as outpatient for 2 days X-ray right hand negative for any acute osseous process, showed soft tissue swelling. Antibiotics: Vancomycin and Unasyn ID consult Orthopedic consult Paroxysmal atrial fibrillation: Continue metoprolol Hold Xarelto in case surgical intervention needed Hypertension: Resume metoprolol, lisinopril Hypothyroidism Synthroid DVT prophylaxis Hold Xarelto. Monitor vital signs and labs Labs and medication were reviewed. Continue same treatment. Further recommendations as per clinical course of the patient REVIEW OF SYSTEMS: CONSTITUTIONAL: No fever, no malaise, no fatigue. HEENT: No recent visual problems or hearing problems. Denied any sore throat. CARDIOVASCULAR: No chest pain, orthopnea, PND, no palpitations, no syncope. PULMONARY: No shortness of breath, no cough, no hemoptysis. GASTROINTESTINAL: No diarrhea, no nausea, no vomiting, no abdominal pain. NEUROLOGICAL: No headaches, no weakness, no numbness. HEMATOLOGICAL: Denies any bleeding or petechiae. GENITOURINARY: Denies any burning micturition, frequency, or urgency. MUSCULOSKELETAL/RHEUMATOLOGICAL: Denies any joint pain, swelling, or any muscle pain. ENDOCRINE: Denies any polyuria or polydipsia. The rest of the 14-point review of systems is negative. PHYSICAL EXAMINATION: GENERAL: The patient is A&O x3, NAD HEENT: EOMI, Sclerae anicteric, Moist Mucous membranes Neck: Supple, Non tender, No JVD PULMONARY: Equal breath souds B/L, No wheezing, No crackles. CARDIOVASCULAR: S1, S2 present. No murmurs, rubs, or gallops. ABDOMEN: Soft, nontender, nondistended, normoactive bowel sounds. No guarding or rebound tenderness. MUSCULOSKELETAL: Dorsum of right hand warm, tender extending up to wrist, painful extension of the wrist. Normal flexion movements. NEUROLOGICAL: CN 2-12 grossly intact. No FND NEUROLOGICAL: No headaches, no weakness, or numbness Dictation was produced using [employer] dictation software. please excuse any grammatical, word or spelling errors. Objective - Vital Signs Vital signs: Vital Signs Temp 98 F 03/24/24 12:56 Pulse 51 L 03/24/24 12:56 Resp 18 03/24/24 12:56 BP 149/90 03/24/24 12:56 Pulse Ox 98 03/24/24 12:56 FiO2 Intake & Output 03/23/24 03/24/24 03/24/24 18:59 06:59 18:59 Intake Total 700 Balance 700 Weight 79.832 kg Intake: Intake, IV Titration 200 Amount Ampicillin-Sulbactam 3 gm 200 In Sodium Chloride 0.9% 100 ml @ 200 mls/hr IVPB Q6HR [facility] Rx#:[id number] Oral 500 Other: Voiding Method Toilet Toilet Toilet # Voids 4 1 - Labs CBC & Chem 7: 03/24/24 04:26 03/24/24 04:26 Labs: Abnormal Lab Results - Last 24 Hours (Table) 03/24/24 03/24/24 Range/Units 04:26 04:26 RBC 3.65 L (3.80-5.40) m/uL Hgb 10.7 L (11.4-16.0) gm/dL Hct 33.4 L (34.0-46.0) % Chloride 111 H (98-107) mmol/L Carbon Dioxide 20 L (22-30) mmol/L Microbiology - Last 24 Hours (Table) 03/22/24 19:34 Blood Culture - Preliminary Blood
[2024-03-25 04:00] LABS: Basophils # (A) 0.1 k/uL (0-0.2); Basophils % (A) 1 %; Eosinophils # (A) 0.4 k/uL (0-0.7); Eosinophils % (A) 4 %; HCT 33.4 % (34.0-46.0); HGB 10.6 gm/dL (11.4-16.0); Hypochromasia Slight; Lymphocytes # (A) 1.8 k/uL (1.0-4.8); Lymphocytes % (A) 20 %; MCH 29.6 pg (25.0-35.0); MCHC 31.8 g/dL (31.0-37.0); MCV 92.9 fL (80.0-100.0); Mean Platelet Volume 6.9; Monocytes # (A) 0.5 k/uL (0-1.0); Monocytes % (A) 6 %; Neutrophils # (A) 6.3 k/uL (1.3-7.7); Neutrophils % (A) 68 %; Platelet Count 301 k/uL (150-450); WBC 9.2 k/uL (3.8-10.6)
[2024-03-25 04:57] LABS: African American GFR (CKD) >90 (>60 ml/min/1.73 sqM); Anion Gap 11 mmol/L; Blood Urea Nitrogen 11 mg/dL (7-17); Calcium 9.1 mg/dL (8.4-10.2); Carbon Dioxide 20 mmol/L (22-30); Chloride 109 mmol/L (98-107); Glucose 100 mg/dL (74-99); Non-African American GFR(CKD) >90 (>60 ml/min/1.73 sqM); Potassium 4.6 mmol/L (3.5-5.1); Sodium 140 mmol/L (137-145)
[2024-03-25 08:41] VITALS: RESP 16
--- NOTE | 2024-03-25 09:07 | P.PN ---
Subjective Progress Note Date: 03/24/24 Principal diagnosis: Reason for follow-up is cat bite cellulitis right hand Patient is a 69-year-old female with a past medical history significant for atrial fibrillation hypothyroidism presenting to the hospital for evaluation of right hand pain swelling and redness that apparently has been getting worse for the last 4 to 5 days patient has been bitten by her pet cat and has been diagnosed with a cat bite cellulitis. On today's evaluation that is 03/24/2024, Patient is afebrile this morning patient denies having any chest pain shortness of breath or cough, the patient is currently on room air, patient denies any abdominal pain no diarrhea no nausea no vomiting, the patient pain to the right hand slightly decreased in intensity. Patient white count is 7.5 creatinine 0.60 Objective - Vital Signs Vital signs: Vital Signs Temp 97.9 F 03/24/24 06:57 Pulse 68 03/24/24 06:57 Resp 18 03/24/24 06:57 BP 167/80 03/24/24 06:57 Pulse Ox 97 03/24/24 06:57 FiO2 Intake & Output 03/23/24 03/24/24 03/24/24 18:59 06:59 18:59 Intake Total 700 Balance 700 Weight 79.832 kg Intake: Intake, IV Titration 200 Amount Ampicillin-Sulbactam 3 gm 200 In Sodium Chloride 0.9% 100 ml @ 200 mls/hr IVPB Q6HR [facility] Rx#:[id number] Oral 500 Other: Voiding Method Toilet Toilet Toilet # Voids 4 1 - Exam GENERAL DESCRIPTION: An elderly female up in bed in no distress RESPIRATORY SYSTEM: Unlabored breathing , decreased breath sounds at bases HEART: S1 S2 regular rate and rhythm , ABDOMEN: Soft , no tenderness EXTREMITIES: Right hand swelling redness slightly decreased - Labs CBC & Chem 7: 03/25/24 03:11 03/25/24 03:11 Labs: Abnormal Lab Results - Last 24 Hours (Table) 03/24/24 03/24/24 Range/Units 04:26 04:26 RBC 3.65 L (3.80-5.40) m/uL Hgb 10.7 L (11.4-16.0) gm/dL Hct 33.4 L (34.0-46.0) % Chloride 111 H (98-107) mmol/L Carbon Dioxide 20 L (22-30) mmol/L Microbiology - Last 24 Hours (Table) 03/22/24 19:34 Blood Culture - Preliminary Blood Assessment and Plan (1) Failure of outpatient treatment Current Visit: Yes Status: Acute Code(s): Z78.9 - OTHER SPECIFIED HEALTH STATUS SNOMED Code(s): 133434924 (2) Leukocytosis Current Visit: Yes Status: Acute Code(s): D72.829 - ELEVATED WHITE BLOOD CELL COUNT, UNSPECIFIED SNOMED Code(s): 653804036 (3) Cat bite Current Visit: Yes Status: Acute Code(s): W55.01XA - BITTEN BY CAT, INITIAL ENCOUNTER SNOMED Code(s): 951377679 (4) Cellulitis of right hand Current Visit: Yes Status: Acute Code(s): L03.113 - CELLULITIS OF RIGHT UPPER LIMB SNOMED Code(s): 07638630754821122 Plan: 1patient presented hospital with right hand swelling redness that was extending to the right forearm likely lymphangitis from a cat bite cellulitis and will likely need to cover for the oral david of the cat mouth clinically doubt MRSA infection failing outpatient oral Augmentin because of the burden of disease 2-leukocytosis likely due to right hand cat bite cellulitis which has improved 3-patient to continue with Unasyn to 3 g every 6 hours for another 24 to 48 hours before transitioning to oral antibiotics Dictation was produced using [employer] dictation software. please excuse any grammatical, word or spelling errors. Time with Patient: Less than 30
--- NOTE | 2024-03-25 09:36 | P.PN ---
Subjective Progress Note Date: 03/25/24 patient states that she is better this morning. Her hand pain is improved. Objective - Vital Signs Vital signs: Vital Signs Temp 98.3 F 03/25/24 07:03 Pulse 67 03/25/24 07:03 Resp 16 03/25/24 07:03 BP 161/81 03/25/24 07:03 Pulse Ox 97 03/25/24 07:03 FiO2 Intake & Output 03/24/24 03/25/24 03/25/24 18:59 06:59 18:59 Intake Total 1425 Balance 1425 Intake: Intake, IV Titration 1025 Amount Ampicillin-Sulbactam 3 gm 200 In Sodium Chloride 0.9% 100 ml @ 200 mls/hr IVPB Q6HR [facility] Rx#:[id number] Sodium Chloride 0.9% 1, 825 000 ml @ 75 mls/hr IV . [id number] [facility] Rx#:[id number] Oral 400 Other: Voiding Method Toilet # Voids 2 8 - Exam focused exam of the right hand was conducted. There is moderate swelling throughout the dorsum of the hand but minimal erythema and no warmth to touch. There is no palpable fluctuance or subcutaneous crepitance. She has minimal to no pain with passive range of motion of the fingers or wrist. - Labs CBC & Chem 7: 03/25/24 03:11 03/25/24 03:11 Labs: Abnormal Lab Results - Last 24 Hours (Table) 03/25/24 03/25/24 Range/Units 03:11 03:11 RBC 3.60 L (3.80-5.40) m/uL Hgb 10.6 L (11.4-16.0) gm/dL Hct 33.4 L (34.0-46.0) % Chloride 109 H (98-107) mmol/L Carbon Dioxide 20 L (22-30) mmol/L Glucose 100 H (74-99) mg/dL Microbiology - Last 24 Hours (Table) 03/22/24 19:34 Blood Culture - Preliminary Blood Assessment and Plan Assessment: right hand cellulitis with no evidence of deep space infection requiring surgical intervention Plan: The patient is improving on IV antibiotics. No plans for surgical intervention at this time. Orthopedics will sign off.
--- NOTE | 2024-03-25 15:05 | P.PN ---
Subjective Progress Note Date: 03/25/24 Principal diagnosis: Reason for follow-up is cat bite cellulitis right hand Patient is a 69-year-old female with a past medical history significant for atrial fibrillation hypothyroidism presenting to the hospital for evaluation of right hand pain swelling and redness that apparently has been getting worse for the last 4 to 5 days patient has been bitten by her pet cat and has been diagnosed with a cat bite cellulitis. On today's evaluation that is 03/25/2024,the patient denies any fever or any chills, patient is breathing comfortably on room air, the patient denies chest pain shortness of breath and no significant cough, patient denies abdominal pain, no nausea vomiting or diarrhea. Patient pain to the right hand has decreased in intensity feeling better wants to go home. Patient white count is 9.2 creatinine 0.64 blood culture has been negative Objective - Vital Signs Vital signs: Vital Signs Temp 98.3 F 03/25/24 07:03 Pulse 67 03/25/24 10:50 Resp 16 03/25/24 10:50 BP 161/81 03/25/24 07:03 Pulse Ox 97 03/25/24 07:03 FiO2 Intake & Output 03/24/24 03/25/24 03/25/24 18:59 06:59 18:59 Intake Total 1425 100 Balance 1425 100 Intake: Intake, IV Titration 1025 Amount Ampicillin-Sulbactam 3 gm 200 In Sodium Chloride 0.9% 100 ml @ 200 mls/hr IVPB Q6HR [facility] Rx#:[id number] Sodium Chloride 0.9% 1, 825 000 ml @ 75 mls/hr IV . [id number] [facility] Rx#:[id number] Oral 400 100 Other: Voiding Method Toilet Toilet # Voids 2 8 - Exam GENERAL DESCRIPTION: An elderly female up in bed in no distress RESPIRATORY SYSTEM: Unlabored breathing , decreased breath sounds at bases HEART: S1 S2 regular rate and rhythm , ABDOMEN: Soft , no tenderness EXTREMITIES: Right hand swelling redness slightly decreased - Labs CBC & Chem 7: 03/25/24 03:11 03/25/24 03:11 Labs: Abnormal Lab Results - Last 24 Hours (Table) 03/25/24 03/25/24 Range/Units 03:11 03:11 RBC 3.60 L (3.80-5.40) m/uL Hgb 10.6 L (11.4-16.0) gm/dL Hct 33.4 L (34.0-46.0) % Chloride 109 H (98-107) mmol/L Carbon Dioxide 20 L (22-30) mmol/L Glucose 100 H (74-99) mg/dL Microbiology - Last 24 Hours (Table) 03/22/24 19:34 Blood Culture - Preliminary Blood Assessment and Plan (1) Failure of outpatient treatment Current Visit: Yes Status: Acute Code(s): Z78.9 - OTHER SPECIFIED HEALTH STATUS SNOMED Code(s): 028979745 (2) Leukocytosis Current Visit: Yes Status: Acute Code(s): D72.829 - ELEVATED WHITE BLOOD CELL COUNT, UNSPECIFIED SNOMED Code(s): 305272338 (3) Cat bite Current Visit: Yes Status: Acute Code(s): W55.01XA - BITTEN BY CAT, INITIAL ENCOUNTER SNOMED Code(s): 001100511 (4) Cellulitis of right hand Current Visit: Yes Status: Acute Code(s): L03.113 - CELLULITIS OF RIGHT UPPER LIMB SNOMED Code(s): 53201561447544357 Plan: 1patient presented hospital with right hand swelling redness that was extending to the right forearm likely lymphangitis from a cat bite cellulitis and will likely need to cover for the oral david of the cat mouth clinically doubt MRSA infection failing outpatient oral Augmentin because of the burden of disease 2-leukocytosis likely due to right hand cat bite cellulitis which has resolved blood culture has been negative 3-patient has shown clinical improvement with Unasyn and wants to go home we will consider a 7 to 10-day course of oral Augmentin on discharge prescription has been sent to the pharmacy Dictation was produced using [employer] dictation software. please excuse any grammatical, word or spelling errors.
[2024-03-25 15:06] VITALS: BP 152/92; PULSE 61; TEMP 97.3
== END 2024-03-25 16:12 | disposition home or self-care (01) | DRG 605 ==
LOC: EC 15:01 → 6NMEDSUR 18:07 → 1SOBS 03-23 07:15 → OBSVTOIN 03-24 10:01
PROVIDERS: ADMIT Family Medicine; ATTEND Family Medicine
DX: S61.451A Open bite of right hand, initial encounter (principal); L03.113 Cellulitis of right upper limb; E89.0 Postprocedural hypothyroidism; I10 Essential (primary) hypertension; I48.0 Paroxysmal atrial fibrillation; W55.01XA Bitten by cat, initial encounter; Z79.1 Long term (current) use of non-steroidal anti-inflammatories (NSAID); Z79.890 Hormone replacement therapy; Z79.899 Other long term (current) drug therapy; Z79.01 Long term (current) use of anticoagulants
CPT/HCPCS: 80048; 80053; 83605; 83735; 84100; 85025; 86140; 87040; 90471; 90715; 96361; 96365; 96366; 96375; 99284